=== PATIENT | female | born 1955 | race Caucasian/White ===

== ENCOUNTER 2020-04-29 15:29 | Outpatient (CLI) | payer MEDICARE, BC ==
--- NOTE | 2020-04-29 15:44 | RAD ---
EXAM: Chest PA and lateral: HISTORY: Left rib pain COMPARISON: 06/20/2015 FINDINGS: Heart: Normal cardiac silhouette Aorta: Atherosclerosis of the aortic knob Pulmonary vessels: Normal Costophrenic angles: Costophrenic angles are clear. Lungs: No consolidation or masses. Pneumothorax: No pneumothorax Osseous structures: No osseous abnormalities IMPRESSION: No acute cardiopulmonary process. Atherosclerosis
== END 2020-04-29 15:30 | disposition home or self-care (01) ==
LOC: MADLAB 15:29
PROVIDERS: ATTEND Registered Nurse
DX: R07.81 Pleurodynia (principal); I70.0 Atherosclerosis of aorta
CPT/HCPCS: 71046

== ENCOUNTER 2022-04-20 13:53 | Outpatient (CLI) | payer MEDICARE, BC | END 2022-04-20 13:54 | disposition home or self-care (01) | LOC: MADRAD 13:53 | PROVIDERS: ATTEND Registered Nurse | DX: M47.26 Other spondylosis with radiculopathy, lumbar region (principal) | CPT/HCPCS: 72120 ==

== ENCOUNTER 2025-05-27 12:36 | Outpatient (CLI) | payer MEDICARE, BC ==
[2025-05-27 13:47] LABS: ALT (SGPT) 36 U/L (Less than 34); AST (SGOT) 29 U/L (11-34); Albumin 4.3 g/dL (3.1-4.5); Alkaline Phosphatase 83 U/L (40-110); Bilirubin, Direct 0.1 mg/dL (0.1-0.3); Bilirubin, Total 0.2 mg/dL (0.3-1.2)
[2025-05-27 13:59] LABS: Thyroid Stimulating Hormone 0.8456 uIU/mL (0.35-4.94)
[2025-05-27 14:15] LABS: Hemoglobin 13.8 g/dL (12.0-16.0); Red Blood Cell (RBC) Count 4.70 mill/uL (4.20-5.40); White Blood Cell (WBC) Count 11.5 10x3/uL (4.8-10.8)
[2025-05-27 14:16] LABS: #Lymphocytes 1.1 thou/uL (1.20-3.40); #Monocytes 0.3 thou/uL (0.11-0.59); #Neutrophils 9.9 thou/uL (1.40-6.50); %Basophils 0.6 % (0.0-1.0); %Eosinophils 0.2 % (0.0-10.0); %Lymphocytes 10.0 % (21.0-51.0); %Monocytes 2.7 % (0.0-10.0); %Neutrophils 86.5 % (42.0-75.0); Hematocrit 44.2 % (36.0-47.0); Mean Corpuscular Hemoglobin 29.4 pg (27.0-31.0); Mean Corpuscular Volume 94.1 fl (78.0-98.0); Platelet Count 238 10x3/uL (130-400)
[2025-05-27 14:17] LABS: #Basophils 0.1 thou/uL (0.0-0.2); #Eosinophils 0.0 thou/uL (0.0-0.7)
[2025-05-28 03:39] LABS: Free T4 (Free Thyroxine) 1.16 ng/dL (0.70-1.48)
[2025-05-28 08:34] LABS: Reference Lab Name LABCORP
== END 2025-05-27 12:37 | disposition home or self-care (01) ==
LOC: MADLAB 12:36
PROVIDERS: ATTEND Allergy & Immunology
DX: D47.2 Monoclonal gammopathy (principal); L50.9 Urticaria, unspecified; D84.89 Other immunodeficiencies
CPT/HCPCS: 36415; 80076; 84155; 84165; 84439; 84443; 85025; 86038; 86140; 86225; 86235